=== PATIENT | female | born 1960 | race Hispanic/Latino ===

== ENCOUNTER → 2017-12-27 | Outpatient (CLI) | payer BC ==
[~2017-12-27] MED LIST: ASPI-1005 PO; ESTR1PAT TD; FAMO40TA7 PO; LORA10TA7 PO; MELO-106 PO; MULT-40 PO; OMEP40CA37 PO; PANT40TA25 PO; ROSU5TAB11 PO; SULF500T8 PO
== END | disposition home or self-care (01) ==
LOC: RAH 08:14
PROVIDERS: ATTEND Orthopaedic Surgery
DX: S83.232A Complex tear of medial meniscus, current injury, left knee, initial encounter (principal); M25.462 Effusion, left knee; X58.XXXA Exposure to other specified factors, initial encounter; Y93.89 Activity, other specified; Y92.89 Other specified places as the place of occurrence of the external cause; Y99.8 Other external cause status
CPT/HCPCS: 73721

== ENCOUNTER 2021-07-23 22:01 | Emergency (ER) | payer BC ==
[~2021-07-23] VITALS: Ht 157.5 cm; Wt 68.0 kg
[~2021-07-23 22:01] MED LIST changes: -ESTR1PAT TD; +OMEP40CA21 PO; -OMEP40CA37 PO; -PANT40TA25 PO; -ROSU5TAB11 PO; +ROSU5TAB12 PO; -SULF500T8 PO
[2021-07-23 22:21] LABS: APPEARANCE,URINE Clear (CLEAR); BILIRUBIN,URINE Negative (NEGATIVE); COLOR,URINE Yellow (YELLOW); GLUCOSE, URINE (UA) Negative (NEGATIVE); KETONES,URINE Negative (NEGATIVE); LEUKOCYTE ESTERASE ,URINE Negative (NEGATIVE); NITRATE,URINE Negative (NEGATIVE); OCCULT BLOOD,URINE Negative (NEGATIVE); PH,URINE 6.5 (5.0-8.0); PROTEIN,URINE Negative (NEGATIVE); UROBILINOGEN,URINE 0.2 mg/dL (0.2-1.0)
[2021-07-23 22:25] VITALS: BP 138/82
[2021-07-23 22:32] LABS: BASOPHILS % (AUTO) 0.4 % (0.0-5.0); EOSINOPHILS % (AUTO) 1.6 % (0.0-8.0); HEMATOCRIT 43.7 % (36-48); LYMPHOCYTES % (AUTO) 46.7 % (21.0-51.0); MEAN CORPUSCULAR HEMOGLOBIN 28.9 pg (27.0-33.0); MEAN CORPUSCULAR VOLUME 90.1 fL (79-99); MONOCYTES % (AUTO) 4.8 % (3.0-13.0); NEUTROPHILS % (AUTO) 46.2 % (40.0-77.0); PLATELET COUNT (AUTO) 294 K/uL (130-400); RED BLOOD CELL COUNT(AUTO) 4.85 MIL/uL (4.00-5.50); RED CELL DISTRIBUTION WIDTH 12.9 % (11.0-15.5); WHITE BLOOD COUNT (AUTO) 8.9 K/uL (4.8-10.8)
[2021-07-23 22:42] LABS: CREATININE 0.9 mg/dL (0.5-1.5); POTASSIUM 3.6 mmol/L (3.5-5.1)
[2021-07-23 22:46] LABS: ALBUMIN 3.7 g/dL (3.5-5.0); BILIRUBIN,TOTAL 0.4 mg/dL (0.2-1.0); TOTAL PROTEIN, SERUM 7.7 g/dL (6.0-8.3)
[2021-07-23] MEDS ORDERED: LACT10PA5 PO (22:56)
[2021-07-23] MEDS ORDERED: DICY20TA2 PO (22:57)
[2021-07-23] MEDS: FAMOTIDINE 20MG VIAL IV ONE (23:00)
[2021-07-23] MEDS: ONDANSETRON 4MG INJ IVP ONE (23:01)
[2021-07-23] MEDS: MORPHINE 2 MG SYG IVP ONE (23:01)
== END 2021-07-23 23:29 | disposition home or self-care (01) ==
LOC: EDH 22:01
DX: K59.00 Constipation, unspecified (principal); N83.202 Unspecified ovarian cyst, left side; Z88.0 Allergy status to penicillin; Z79.1 Long term (current) use of non-steroidal anti-inflammatories (NSAID); Z79.82 Long term (current) use of aspirin; Z79.899 Other long term (current) drug therapy
CPT/HCPCS: 36415; 71045; 74176; 80053; 81003; 83690; 84484; 85025; 93005; 96374; 96375; 99284; J2405; J3490